=== PATIENT | female | born 1965 | race Caucasian/White ===

== ENCOUNTER → 2018-12-31 09:31 | Outpatient (CLI) | payer MEDICAID, SELFPAY ==
--- NOTE | 2018-12-31 09:38 | XR_ITS ---
PROCEDURE: XR WRIST LT MIN 3V CLINICAL INDICATION: left wrist pain/ CTS COMPARISON: No exams were available for comparison FINDINGS: No fracture, dislocation, lytic change, or blastic change evident. No significant degenerative change IMPRESSION: Within normal limits Dictated by: Dewayne Jones MD 12/31/2018 11:05 Signed by: <Electronically signed by Dewayne Jones MD in [place]> 12/31/2018 11:05
== END ==
PROVIDERS: PCP Family Medicine; Visit Provider Orthopaedic Surgery
DX: M25.532 Pain in left wrist (principal)
CPT/HCPCS: 73110

== ENCOUNTER → 2019-01-04 12:52 | Outpatient (CLI) | payer MEDICAID, SELFPAY ==
--- NOTE | 2019-01-04 13:03 | XR_ITS ---
PROCEDURE: XR CHEST 2V CLINICAL HISTORY: smoker, pre-op COMPARISON: ABDPELW CT ABD PELVIS W/ CONTRAST from 02/20/2014 FINDINGS: The cardiomediastinal silhouette and pulmonary vascularity are within normal limits. There is a 12 mm nodule in the right middle lobe which represents a partially calcified nodule as seen on a previous CT scan. The remaining lungs are clear. No acute bony abnormalities. IMPRESSION: Old granulomatous disease, no acute finding Dictated by: Dewayne Jones MD 01/04/2019 13:35 Signed by: <Electronically signed by Dewayne Jones MD in [place]> 01/04/2019 13:35
== END ==
PROVIDERS: PCP Orthopaedic Surgery; Referring Provider Orthopaedic Surgery; Visit Provider Orthopaedic Surgery
DX: Z01.818 Encounter for other preprocedural examination (principal); G56.02 Carpal tunnel syndrome, left upper limb
CPT/HCPCS: 71046

== ENCOUNTER → 2019-01-04 13:15 | Outpatient (CLI) | payer MEDICAID, SELFPAY ==
[2019-01-04 13:41] LABS: Basophils % 0.6 % (0.1-2.0); Eosinophils # 0.1 K/mm3 (0.0-0.4); Eosinophils % 1.4 % (0.1-12.0); Hemoglobin 13.9 g/dL (12.2-16.2); Lymphocytes # 2.6 K/mm3 (0.7-4.5); Lymphocytes % 37.4 % (10-50); Mean Corpuscular HGB Conc 33.2 g/dL (31.8-35.4); Mean Corpuscular Hemoglobin 30.1 pg (27.0-31.2); Mean Corpuscular Volume 90.6 fl (81-99); Mean Platelet Volume 8.4 fl (7.4-10.4); Monocytes # 0.4 K/mm3 (0.1-1.0); Monocytes % 5.6 % (1.7-9.3); Neutrophils # 3.9 K/mm3 (1.8-7.8); Neutrophils % 55.1 % (37.0-80.0); Platelet Count 246 K/mm3 (142-424); Red Blood Count 4.63 M/mm3 (4.20-5.40); Red Cell Distribution Width 13.7 % (11.5-17.5)
[2019-01-04 15:02] LABS: Hemoglobin A1C 6.9 % (0.0-7.0)
[2019-01-04 15:26] LABS: Alanine Aminotransferase 49 U/L (12-78); Albumin Level 4.1 gm/dL (3.4-5.0); Albumin/Globulin Ratio 1.1 (1.1-1.8); Alkaline Phosphatase 99 U/L (46-116); Anion Gap 9.4 mEq/L (5-15); Aspartate Amino Transferase 55 U/L (15-37); Bilirubin,Total 0.3 mg/dL (0.2-1.0); Blood Urea Nitrogen 8 mg/dL (7-18); Calcium 9.7 mg/dL (8.5-10.1); Carbon Dioxide 34 mmol/L (21.0-32.0); Chloride 91 mmol/L (98-107); Estimated Glomerular Filt Rate 105 ml/min (>60); GFR (African American) 128 ML/MIN (>60); Globulin 3.9 gm/dl (1.3-3.2); Glucose 118 mg/dL (74-106); Potassium 4.4 mmoL/L (3.5-5.1); Sodium 130 mmol/L (136-145)
== END ==
PROVIDERS: Visit Provider Orthopaedic Surgery
DX: Z01.818 Encounter for other preprocedural examination (principal); G56.02 Carpal tunnel syndrome, left upper limb
CPT/HCPCS: 36415; 80053; 83036; 85025

== ENCOUNTER → 2019-06-10 13:32 | Outpatient (CLI) | payer OTHER, SELFPAY ==
--- NOTE | 2019-06-10 13:35 | MR_ITS ---
PROCEDURE: MR LUMBAR SPINE WO CON CLINICAL INDICATION: LUMBAR DEGENERATIVE DISC DISEASE Low back pain with right leg numbness COMPARISON: No exams were available for comparison TECHNIQUE: Standard multiplanar multiecho sequences are performed without contrast. 3-D MIP and myelographic images are also rendered and reviewed FINDINGS: There is normal alignment. The spinal cord ends at the T12-L1 level. T11-T12, T12-L1, and L1-L2 and L2-L3 have an unremarkable appearance. There is minimal bulging disc with minimal disc desiccation at L3-L4 with minimal bulging disc with mild bilateral foraminal narrowing. L4-5 and L5-S1 have an unremarkable appearance. Incidental note made of a 1.3 cm left renal cyst. IMPRESSION: 1. Minimal bulging disc at L3-L4 with mild bilateral foraminal narrowing. 2. Otherwise negative MRI of the lumbar spine. No herniated disc or canal stenosis Dictated by: Dewayne Jones MD 06/12/2019 10:12 Electronically signed by Dewayne Jones MD in [place] 06/12/2019 10:12
== END ==
PROVIDERS: PCP Family Medicine; Visit Provider Family Medicine
DX: M51.36 Other intervertebral disc degeneration, lumbar region (principal); G89.29 Other chronic pain
CPT/HCPCS: 72148; 76376

== ENCOUNTER → 2019-10-08 09:32 | Outpatient (CLI) | payer MEDICAID, SELFPAY ==
--- NOTE | 2019-10-08 09:40 | XR_ITS ---
PROCEDURE: XR WRIST RT MIN 3V CLINICAL INDICATION: RIGHT wrist pain/ CTS COMPARISON: XR WRIST LT MIN 3V from 12/31/2018 FINDINGS: No fracture, dislocation, lytic change, or blastic change evident. No significant degenerative change IMPRESSION: Negative right wrist Dictated by: Dewayne Jones MD 10/08/2019 12:30 Electronically signed by Dewayne Jones MD in [place] 10/08/2019 12:30
== END ==
PROVIDERS: PCP Family Medicine; Visit Provider Orthopaedic Surgery
DX: M25.531 Pain in right wrist (principal)
CPT/HCPCS: 73110

== ENCOUNTER → 2019-10-10 07:48 | Outpatient (CLI) | payer MEDICAID, SELFPAY ==
[2019-10-10 08:08] LABS: Basophils % 0.5 % (0.1-2.0); Eosinophils # 0.2 K/mm3 (0.0-0.4); Eosinophils % 2.9 % (0.1-12.0); Hematocrit 40.5 % (37.0-47.0); Hemoglobin 14.4 g/dL (12.2-16.2); Lymphocytes # 2.9 K/mm3 (0.7-4.5); Mean Corpuscular HGB Conc 35.4 g/dL (31.8-35.4); Mean Corpuscular Hemoglobin 31.7 pg (27.0-31.2); Mean Corpuscular Volume 89.4 fl (81-99); Mean Platelet Volume 9.3 fl (7.4-10.4); Monocytes # 0.3 K/mm3 (0.1-1.0); Neutrophils # 4.7 K/mm3 (1.8-7.8); Neutrophils % 57.5 % (37.0-80.0); Platelet Count 202 K/mm3 (142-424); Red Blood Count 4.53 M/mm3 (4.20-5.40); Red Cell Distribution Width 13.2 % (11.5-17.5); White Blood Count 8.2 K/mm3 (4.8-10.8)
--- NOTE | 2019-10-10 08:18 | ECG_ITS ---
APPROVED REPORT Exam: Resting ECG HR:69 bpm ECG Measurements Heart Rate 69 AXES WI 160 P 58 QRSd 94 QRS 71 QT 380 T 56 QTc 407 <Conclusion> Normal sinus rhythm Possible Left atrial enlargement Poor R Wave Progression Abnormal ECG Electronically signed by : Westley Conti, 10/10/2019 17:11:08
--- NOTE | 2019-10-10 08:21 | XR_ITS ---
PROCEDURE: XR CHEST 2V CLINICAL HISTORY: HTN,TOBACCO USE COMPARISON: XR CHEST 2V from 01/04/2019 FINDINGS: Mild emphysematous changes are noted with hyperexpansion of the lung galeana and flattening of the hemidiaphragms. The lung galeana are clear of infiltrate. There is a faint nodular density right lower lung field apparently due to partially calcified granuloma as noted on previous CT scan of the chest. The cardiac silhouette and vascularity are normal and there is no pleural fluid. IMPRESSION: Mild COPD and evidence of old granulomatous disease, no acute chest pathology noted Dictated by: Dr. Cedric Bryant MD 10/10/2019 08:[address] Cedric Bryant MD in [place] 10/10/2019 08:58
[2019-10-10 09:06] LABS: Chloride 85 mmol/L (98-107); Potassium 4.3 mmoL/L (3.5-5.1); Sodium 123 mmol/L (136-145)
[2019-10-10 09:09] LABS: Alanine Aminotransferase 35 U/L (12-78); Albumin Level 4.2 g/dl (3.5-5.0); Albumin/Globulin Ratio 1.4 (1.1-1.8); Alkaline Phosphatase 110 U/L (38-126); Anion Gap 11.3 mEq/L (5-15); Aspartate Amino Transferase 55 U/L (14-36); Bilirubin,Total 0.6 mg/dl (0.2-1.3); Blood Urea Nitrogen 16 mg/dl (7-17); Carbon Dioxide 31 mmol/L (22.0-30.0); Estimated Glomerular Filt Rate 105 ml/min (>60); GFR (African American) 127 ML/MIN (>60); Globulin 2.9 g/dL (1.3-3.2); Total Protein,Serum 7.1 g/dl (6.3-8.2)
[2019-10-10 09:10] LABS: Glucose 118 mg/dl (74-100)
[2019-10-10 11:15] LABS: Hemoglobin A1C 6.7 % (4.0-6.0)
[2019-10-10 11:41] LABS: Coronavirus 19 IgG Antibody Negative (Negative); Coronavirus 19 IgM Antibody Negative (Negative)
== END ==
PROVIDERS: Visit Provider Orthopaedic Surgery
DX: Z01.818 Encounter for other preprocedural examination (principal); G56.01 Carpal tunnel syndrome, right upper limb
CPT/HCPCS: 36415; 71046; 80053; 83036; 85025; 86328; 93005

== ENCOUNTER 2019-10-13 06:04 | Day surgery (SDC) | payer MEDICAID, SELFPAY ==
--- NOTE | 2019-10-09 11:52 | SUR.PREOP ---
10/09/2019 @ 1769--PHONE CALL MADE TO PATIENT. PATIENT UNDERSTANDS THAT LAB WORK AND COVID TESTING NEEDS TO BE COMPLETED @ 0800 ON 10/10/2019. PATIENT UNDERSTANDS IF LAB WORK AND COVID-19 TESTS ARE NOT COMPLETED BY 12PM ON THAT DATE, THE SURGERY SCHEDULED WILL BE CANCELLED AND RESCHEDULED FOR ANOTHER TIME.
[2019-10-13 06:34] VITALS: BP 145/74; PULSE 65; RESP 20; TEMP 37; O2SAT 94; BMI 34.0
[2019-10-13 06:49] LABS: POC Glucose,Bedside 140 (70-110)
--- NOTE | 2019-10-13 07:03 | P.PN_ITS ---
[facility] Anesthesia Checklist - Patient Identification Patient Identification: Arm Band, Verbal (Name & ) - Structural Data Admitted From: Home Planned Operative Procedure/s: r ctr Consent for Planned Operative Procedure(s) Verified: Yes Verified Documents: History and Physical - NPO Status Verified Time NPO: 00:00 - Chart Verification Results Verified: CBC, BMP - Additional verifications Patient : No Anesthesia Reactions: No Hx Blood Transfusions: No Blood Transfusion Reaction: No Cephalosporin Allergy: No Previous Colonoscopy: No - Cardiovascular Assessment Heart Sounds: S1 & S2 Pulse Strength: Baseline Pulse Rhythm: Regular Peripheral Edema: No - Airway Assessment C-Spine Mobility Assessed: Yes TMJ Mobility Assessed: Yes Dentition: Good Dentition - Neurological Assessment Level of Consciousness: Awake, Alert, Appropriate Hx Seizures: No Numbness or tingling in extremities: No - Anesthesia Plan Anesthesia Risk discussed: Yes Anesthesia Plan: Verified ASA Class: III Anesthesia Type: General [facility] History I have reviewed the patient's past medical history: Yes Medical History: Reports:: Anxiety, Chronic Obstructive Pulmonary Disease (COPD), Depression, Diabetes Mellitus Type 2, Gastroesophageal Reflux Disease(GERD), Hepatitis, Hyperlipidemia, Hypertension Denies:: Cancer, Diabetes Mellitus Type 1, Internal Pacemaker, MRSA, Seizures *Have you ever received a pneumonia vaccine?: Yes *Have you received a flu vaccine this season?: No Other Medical History: Reports: Arthritis. Denies: Blood Transfusion Reaction Anesthesia experience/problems:: none Laterality Cases: Left: Carpal Tunnel Release Other Surgeries: Yes: Colonoscopy, . No: Pacemaker Amputation: No Fractures: No - *Social History Educational Level: Attended College Smoking Status: Current every day smoker Tobacco Type: cigarettes # Packs/Day (cigarettes): 2 Alcohol Intake: never Substance Use Type: other *Occupational Status:: unemployed Housing: house Household Members: spouse *Travel in the last 8 weeks: None - Psychiatric History Pschychiatric History:: Reports:: Anxiety, Depression Family Hx:: Diabetes, Heart Attack
[2019-10-13 08:54] VITALS: BP 116/69; PULSE 81; RESP 16; TEMP 36.2; O2SAT 92
[2019-10-13 09:09] VITALS: BP 123/94; PULSE 79; RESP 18; O2SAT 92
--- NOTE | 2019-10-13 09:14 | HMH.OPNOTE ---
Date of procedure: 10/13/19 Pre-op Diagnosis:: Carpal syndrome, right Post-op Diagnosis:: Same Procedure performed:: Open carpal tunnel release, right wrist Surgeon:: Matthias Martinez MD DRILLING [employer] SPECIALIST:: Gavino Mack Anesthesia: regional (Hollyvilla's block) Estimated blood loss (mL): 2 Clinical Note:: Patient is 54-year-old female with right carpal tunnel syndrome with long-standing symptoms. Previously EMG/NCV results confirmed carpal tunnel syndrome on both sides and she previously underwent successful carpal tunnel release on the left side. Patient is having significant and disabling symptoms on the right side and has failed to respond adequately to conservative management. Therefore the carpal tunnel release surgery is necessary to relieve symptoms, preserve the remaining fibers of the median nerve, improve function and decrease the pain, paresthesias and weakness and to prevent permanent nerve damage. Please refer to my office note for full details. Operative findings:: The intraoperative findings showed the median nerve to be very tightly compressed and hyperemic. The flexor retinaculum was noted to be thick and tight. There was mild synovitis in the carpal tunnel. There was no evidence of any space-occupying lesions within the carpal tunnel. Operative note:: On the day of the surgery the patient was met in the preoperative area. Patient was positively identified and the operative site was marked and initialed by me. A physical examination was performed and the chart was updated. I again discussed the procedure, risks and benefits and alternatives with the patient. The complications discussed include but are not limited to- bleeding, injury to nerves, blood vessels and tendons, infection, wound dehiscence, incomplete relief/continued pain, persistent numbness, palmar hypersensitivity, pillar pain, DVT/PE, complex regional pain syndrome(CRPS), worsening of nerve damage, failure of the condition to improve, incomplete return of function, bowstringing of tendons, weakness of electric motor repair supervisor strength, recurrence, failure of the surgery to accomplish the desired goals, decreased use of the hand, loss of use of the arm, loss of the hand or arm, loss of life. Likely need for further surgery in the future has been discussed. I've indicated to the patient where the proposed incision would be made and also discussed the possibility of extending the incision if needed to accomplish an effective release. We have discussed how the goal of surgery is to protect the fibers which have remained healthy and hopefully reverse the symptoms of the fibers which are compromised but still recoverable. We have explained that, fibers that are permanently damaged will not recover. We have also discussed the anesthetic options which include local, regional and general. Patient expressed a preference for a regional Hollyvilla's block. Patient asked appropriate questions and all have been answered by me. Patient wished to proceed with the surgery. Patient understood the risks, agreed to proceed with surgery, signed the consent form and no guarantees or assurances were given or implied. The patient was brought to the operating room and placed supine on the operating table. The right upper extremity was placed over a side table. All the bony prominences were well-padded. The patient had a Mirtha's block anesthesia and IV sedation administered by the machine welt butter. Please see nursing records for the total tourniquet time. The right upper extremity was prepped and draped in the usual sterile fashion. A preprocedure timeout was performed as per hospital policy. The skin incision was marked using the Mcknight's landmarks, just ulnar to the thenar crease. Mcknight's landmarks were utilized and a skin incision was made parallel and just ulnar to the thenar crease with a 15 blade. Blunt tissue dissection was carried through the subcutaneous tissue down to the palmar fascia. The palmar fascia was incised with the knife to
[2019-10-13 09:24] VITALS: BP 140/78; PULSE 75; RESP 18; O2SAT 94
[2019-10-13 09:43] VITALS: BP 118/68; PULSE 84; RESP 18; O2SAT 94
== END 2019-10-13 09:43 | disposition home or self-care (01) ==
LOC: OR 06:05
PROVIDERS: PCP Family Medicine; Visit Provider Orthopaedic Surgery
PROC: (CPT 64721; principal; 2019-10-13 07:30)
DX: G56.01 Carpal tunnel syndrome, right upper limb (principal)
CPT/HCPCS: 64721; 82962; 96374

== ENCOUNTER → 2020-09-15 14:06 | Outpatient (CLI) | payer OTHER, SELFPAY ==
--- NOTE | 2020-09-15 14:06 | CT_ITS ---
PROCEDURE: CT LUNG SCREENING CLINICAL INDICATION: lung cancer screening COMPARISON: No exams were available for comparison TECHNIQUE: The exam was performed on a GE Light Speed [address] scanner using 2.90 mGy CTDI. A low dose helical CT CHEST was performed on a multi-detector scanner. All CT scans at the facility use one or more dose reduction, viz: automated exposure control, ma/kV adjustment per patient size (including targeted exams where dose is matched to indication, i.e. head), or iterative reconstruction technique. The LDCT was performed in a facility that meets the criteria for the screening program. Data regarding this exam was submitted to ACR which is an approved registry. The order for this exam indicates that it came as a result of a lung cancer screening counseling shard decision-making visit that included all the elements required of such a visit including smoking cessation. The radiologist interpreting this exam meets the CMS criteria for the LDCT lung cancer screening program. The exam is reported using the Lung-RADS classification scale and reported to the ACR registry. NOTE: This study was performed for the specific purposes of lung cancer screening and is not an alternative to diagnostic chest CT. RADIATION DOSE: CTDI vol(CT dose Index-volume) = 2.90mG DLP (Dose Length Product) = mGcm FINDINGS: There is a left lower lobe nodule measuring 5 millimeters abutting the fissure. F ocal nodular appearing density noted in the left upper lobe measuring 8 millimeters, demonstrates adjacent ground-glass densities. Second nodule is noted in the left upper lobe measuring 7 millimeters. Calcified granuloma in the right middle lobe. Centrilobular emphysematous changes are noted bilaterally. No lobar consolidation, pleural effusions or pneumothorax. The central tracheobronchial tree is patent. The heart size is normal. No pericardial effusions. Atherosclerotic vascular calcification of the thoracic aorta and the coronary arteries are noted. No significant mediastinal adenopathy. Few calcified lymph nodes are noted in the mediastinum. No significant hilar or mediastinal adenopathy. Visualized osseous structures are unremarkable. The visualized upper abdominal solid organs are unremarkable within the limitations of unenhanced study. The visualized thyroid gland is unremarkable. IMPRESSION: Lung-RADS Category 3 Probably Benign Follow-up: Close follow-up with CT thorax in 3 months is recommended. PET-CT should be considered. Dictated by: Destinee Martinez 09/16/2020 09:00 Destinee Martinez in [place] 09/16/2020 09:00
== END ==
PROVIDERS: PCP Family Medicine; Visit Provider Internal Medicine Pulmonary Disease
DX: Z87.891 Personal history of nicotine dependence (principal); Z12.2 Encounter for screening for malignant neoplasm of respiratory organs; R06.00 Dyspnea, unspecified
CPT/HCPCS: 71271; 94060; 94618; 94726; 94729

== ENCOUNTER → 2020-12-15 14:21 | Outpatient (CLI) | payer OTHER, SELFPAY ==
--- NOTE | 2020-12-15 14:22 | CT_ITS ---
PROCEDURE: CT CHEST WO CON CLINICAL INDICATION: 3-month follow-up CT Follow-up pulmonary nodules COMPARISON: CT CT LUNG SCREENING from 09/15/2020 TECHNIQUE: Axial images obtained with sagittal and coronal reformats. All CT scans at the facility use one or more dose reduction, viz: automated exposure control, ma/kV adjustment per patient size (including targeted exams where dose is matched to indication, i.e. head), or iterative reconstruction technique. FINDINGS: HEART AND MEDIASTINAL STRUCTURES: Coronary artery calcification. No mediastinal or hilar mass or adenopathy. LUNGS AND PLEURAL SPACES: COPD with centrilobular emphysema and evidence of old granulomatous disease. 4 mm subpleural nodular opacity right upper lobe medially slightly more prominent compared to the previous exam. Jade fissural nodules along the left major fissure unchanged. No change in the 8 mm nodule within the left upper lobe along the major fissure in the 7 mm nodule in the left upper lobe in the subpleural region of the major fissure. No new the nodules apparent. No effusions or infiltrates. BONY STRUCTURES: No acute bony abnormalities apparent. UPPER ABDOMEN: Unremarkable. ADDITIONAL FINDINGS: No other significant abnormalities. IMPRESSION: Overall no change in the left upper lobe nodules as described above. Slightly more prominent 4 mm nodule in the right upper lobe. The prominence could be related to the slice orientation. Continued six-month follow-up suggested. Dictated by: Dewayne Jones MD 12/16/2020 09:16 Dewayne Jones MD in [place] 12/16/2020 09:16
== END ==
PROVIDERS: PCP Emergency Medicine; Visit Provider Internal Medicine Pulmonary Disease
DX: R91.8 Other nonspecific abnormal finding of lung field (principal)
CPT/HCPCS: 71250

== ENCOUNTER → 2021-04-27 16:16 | Outpatient (CLI) | payer OTHER, SELFPAY ==
[2021-04-27 17:36] LABS: Basophils # 0.1 K/mm3 (0-0.2); Basophils % 1.2 % (0.1-2.0); Eosinophils # 0.2 K/mm3 (0.0-0.4); Eosinophils % 1.8 % (0.1-12.0); Hematocrit 44.2 % (37.0-47.0); Hemoglobin 14.3 g/dL (12.2-16.2); Lymphocytes # 4.2 K/mm3 (0.7-4.5); Lymphocytes % 34.7 % (10-50); Mean Corpuscular HGB Conc 32.4 g/dL (31.8-35.4); Mean Corpuscular Hemoglobin 30.3 pg (27.0-31.2); Mean Corpuscular Volume 93.7 fl (81-99); Mean Platelet Volume 8.7 fl (7.4-10.4); Monocytes # 0.6 K/mm3 (0.1-1.0); Monocytes % 5.2 % (1.7-9.3); Neutrophils # 6.9 K/mm3 (1.8-7.8); Neutrophils % 57.1 % (37.0-80.0); Platelet Count 426 K/mm3 (142-424); Red Blood Count 4.72 M/mm3 (4.20-5.40); Red Cell Distribution Width 14.2 % (11.5-17.5)
[2021-05-04 15:25] LABS: D001-IgE D pteronyssinus <0.10 kU/L (Class 0); D002-IgE D farinae <0.10 kU/L (Class 0); E001-IgE Cat Dander <0.10 kU/L (Class 0); E005-IgE Dog Dander <0.10 kU/L (Class 0); E072-IgE Mouse Urine <0.10 kU/L (Class 0); G002-IgE Bermuda Grass <0.10 kU/L (Class 0); G006-IgE Timothy Grass <0.10 kU/L (Class 0); I006-IgE Cockroach, German <0.10 kU/L (Class 0); Immunoglobulin E, Total 120 IU/mL (6-495); M001-IgE Penicillium chrysogen <0.10 kU/L (Class 0); M002-IgE Cladosporium herbarum <0.10 kU/L (Class 0); M003-IgE Aspergillus fumigatus <0.10 kU/L (Class 0); M006-IgE Alternaria alternata <0.10 kU/L (Class 0); T001-IgE Maple/Box Elder <0.10 kU/L (Class 0); T003-IgE Common Silver Birch <0.10 kU/L (Class 0); T006-IgE Cedar, Mountain <0.10 kU/L (Class 0); T007-IgE Oak, White <0.10 kU/L (Class 0); T008-IgE Elm, American <0.10 kU/L (Class 0); T010-IgE Walnut <0.10 kU/L (Class 0); T011-IgE Maple Leaf Sycamore <0.10 kU/L (Class 0); T014-IgE Cottonwood <0.10 kU/L (Class 0); T015-IgE Ash, White <0.10 kU/L (Class 0); T022-IgE Pecan, Hickory <0.10 kU/L (Class 0); T070-IgE White Mulberry <0.10 kU/L (Class 0); W001-IgE Ragweed, Short <0.10 kU/L (Class 0); W011-IgE Thistle, Russian <0.10 kU/L (Class 0); W014-IgE Pigweed, Common <0.10 kU/L (Class 0); W018-IgE Sheep Sorrel <0.10 kU/L (Class 0)
== END ==
PROVIDERS: Visit Provider Internal Medicine Pulmonary Disease
DX: J45.909 Unspecified asthma, uncomplicated (principal)
CPT/HCPCS: 82785; 85025; 86003

== ENCOUNTER → 2021-09-27 14:52 | Outpatient (CLI) | payer OTHER, SELFPAY ==
--- NOTE | 2021-09-27 14:52 | CT_ITS ---
FINAL REPORT TECHNIQUE: Thin section axial images were obtained from the lung apices through the upper abdomen without contrast. This study was performed with techniques to keep radiation doses as low as reasonably achievable (ALARA). Individualized dose reduction techniques using automated exposure control or adjustment of mA and/or kV according to the patient's size were employed. CLINICAL HISTORY: lung nodule followup COMPARISON: December 15, 2020 and September 15, 2020 FINDINGS: There is no mediastinal, left hilar, or axillary lymphadenopathy. There are several small right hilar lymph nodes which are unchanged. There is no pleural or pericardial effusion. There are changes of emphysema. There is a 6 mm nodule in the left upper lobe on image 104 which is unchanged. A second left upper lobe nodule along the major fissure on image 96 is also stable. The previously mentioned right upper lobe nodule is not well visualized on today's exam. However, there has been interval development of bilateral, right greater than left, patchy ground-glass opacities. This finding is concerning for viral pneumonia to include COVID. Limited, unenhanced evaluation of the upper abdomen is without acute abnormality. There is no acute osseous abnormality. IMPRESSION: 1. Stable left lung nodules. 2. Interval development of patchy bilateral, right greater than left, ground-glass opacities concerning for viral pneumonia, consider COVID. Reviewed, Interpreted and Dictated by Rosa Fisher MD Transcribed by Jeanne Virk Authenticated by Rosa Fisher MD on 09/27/2021 04:35:16 PM [facility]
== END ==
PROVIDERS: PCP Emergency Medicine; Visit Provider Internal Medicine Pulmonary Disease
DX: R91.8 Other nonspecific abnormal finding of lung field (principal)
CPT/HCPCS: 71250

== ENCOUNTER → 2021-09-27 15:47 | Outpatient (CLI) | payer OTHER, SELFPAY ==
[2021-09-27 16:01] LABS: Coronavirus 19, PCR Not Detected (NotDetected); Influenza A, PCR Not Detected (NotDetected); Influenza B, PCR Not Detected (NotDetected)
== END ==
PROVIDERS: Visit Provider Internal Medicine Pulmonary Disease
DX: Z01.812 Encounter for preprocedural laboratory examination (principal); Z20.822 Contact with and (suspected) exposure to COVID-19; R06.02 Shortness of breath; R91.1 Solitary pulmonary nodule
CPT/HCPCS: C9803; U0003; U0005

== ENCOUNTER → 2021-10-12 16:38 | Outpatient (CLI) | payer OTHER, SELFPAY ==
--- NOTE | 2021-10-12 16:45 | XR_ITS ---
PROCEDURE INFORMATION: Exam: XR Chest Exam date and time: 10/12/2021 4:47 PM Age: 56 years old Clinical indication: Shortness of breath; Additional info: SOB TECHNIQUE: Imaging protocol: XR of the chest. Views: 2 views. COMPARISON: CT CHEST WO CON 09/27/2021 2:56 PM FINDINGS: Lungs: Chronic partially calcified right middle lobe pulmonary granuloma again noted, approximate 1.3 cm. No pulmonary consolidation. The patchy ground-glass disease including peripheral rounded opacities seen in the right lung on the recent chest CT of 09/27/2021 are not well visualized on plain chest x-ray. Small noncalcified left pulmonary nodules seen on the prior CT are also not well demonstrated on this chest x-ray. Borderline pulmonary hyperinflation. Pleural spaces: Unremarkable. No significant pleural effusion. No pneumothorax. Heart/Mediastinum: The cardiac silhouette is normal. Bones/joints: Spinal degenerative changes. Mild multilevel disc narrowing and spondylosis. Cervical facet arthropathy. IMPRESSION: 1. Chronic calcified right pulmonary granuloma. 2. Patchy pulmonary ground-glass disease seen on the recent CT of 09/27/2021 is not well visualized on plain chest x-ray. There is no focal consolidation. 3. Additional nonemergency and chronic findings as above.
== END ==
PROVIDERS: PCP Emergency Medicine; Visit Provider Internal Medicine Pulmonary Disease
DX: R06.02 Shortness of breath (principal); B95.2 Enterococcus as the cause of diseases classified elsewhere; B96.5 Pseudomonas (aeruginosa) (mallei) (pseudomallei) as the cause of diseases classified elsewhere
CPT/HCPCS: 71046; 87070; 87186; 87205

== ENCOUNTER → 2022-05-11 14:58 | Outpatient (CLI) | payer OTHER, SELFPAY ==
--- NOTE | 2022-05-11 15:06 | CT_ITS ---
FINAL REPORT TECHNIQUE: Axial images were obtained from the lung apex to the mid abdomen by computed tomography. Coronal reformatted images were obtained. This study was performed with techniques to keep radiation doses as low as reasonably achievable, (ALARA). Individualized dose reduction techniques using automated exposure control or adjustment of mA and/or kV according to the patient''s size were employed. CLINICAL HISTORY: 9 month F/U COMPARISON: 09/27/2021 in 04/14/2022 FINDINGS: There are scattered borderline enlarged lymph nodes, probably reactive. Heart size is normal. There is no pericardial or pleural effusion. Limited images of the upper abdomen are unremarkable. Interval increase in size in the left upper lobe nodule measuring 8 mm, previously measured 6 mm. There is a 2nd left upper lobe nodule measuring 9 mm, was 7 mm. Emphysema is noted. There has been resolution of the ground-glass opacities previously noted in the upper lobes. IMPRESSION: Mild interval enlargement left upper lobe nodules. Continued close follow-up recommended in six months. Resolution bilateral upper lobe opacities Reviewed, Interpreted and Dictated by Ervin Christine MD Transcribed by Erin Galeano Authenticated and . [facility]
== END ==
PROVIDERS: PCP Emergency Medicine; Visit Provider Internal Medicine Pulmonary Disease
DX: R91.8 Other nonspecific abnormal finding of lung field (principal)
CPT/HCPCS: 71250

== ENCOUNTER → 2022-11-21 14:27 | Outpatient (CLI) | payer OTHER, SELFPAY ==
--- NOTE | 2022-11-21 14:29 | CT_ITS ---
FINAL REPORT TECHNIQUE: Thin section axial images were obtained from the lung apices through the upper abdomen without contrast. This study was performed with techniques to keep radiation doses as low as reasonably achievable (ALARA). Individualized dose reduction techniques using automated exposure control or adjustment of mA and/or kV according to the patient's size were employed. CLINICAL HISTORY: NODULES COMPARISON: 05/11/2022 FINDINGS: There is no mediastinal, hilar, or axillary lymphadenopathy. No pleural or pericardial effusion. There is evidence of prior granulomatous disease. The posterior left upper lobe pulmonary nodules are unchanged. No new nodules are identified. There is no new consolidation. Limited, unenhanced evaluation of the upper abdomen is without acute abnormality. There is no acute osseous abnormality. IMPRESSION: Stable noncalcified pulmonary nodules in the left upper lobe. Recommend continued follow-up to prove stability for 2 years. Reviewed, Interpreted and Dictated by Rosa Fisher MD Transcribed by Agueda Jeffery Authenticated and [facility]
== END ==
PROVIDERS: PCP Emergency Medicine; Visit Provider Internal Medicine Pulmonary Disease
DX: R91.8 Other nonspecific abnormal finding of lung field (principal)
CPT/HCPCS: 71250

== ENCOUNTER → 2023-04-04 12:55 | Outpatient (CLI) | payer OTHER, SELFPAY ==
--- NOTE | 2023-04-09 08:33 | PC.NURSE ---
Patient did a overnight pulse ox but there wasn't enough data. Will have patient redo.
--- NOTE | 2023-05-14 13:31 | PC.NURSE ---
I spoke with the patient just before [place] about repeating the overnight pulse ox and she asked for me to call back after the first of the year. I have called and left a message to call me back to schedule a day to pick one up.
== END ==
PROVIDERS: PCP Emergency Medicine; Visit Provider Internal Medicine Pulmonary Disease
DX: G47.30 Sleep apnea, unspecified (principal); R06.09 Other forms of dyspnea
CPT/HCPCS: 94060; 94618; 94726; 94729

== ENCOUNTER 2023-07-04 12:06 | Outpatient (CLI) | payer OTHER, SELFPAY | END 2023-07-04 23:59 | LOC: RT 12:07 | PROVIDERS: PCP Emergency Medicine; Visit Provider Internal Medicine Pulmonary Disease | DX: G47.30 Sleep apnea, unspecified (principal) ==

== ENCOUNTER 2023-12-03 14:49 | Outpatient (CLI) | payer OTHER, SELFPAY ==
--- NOTE | 2023-12-03 14:49 | CT_ITS ---
FINAL REPORT TECHNIQUE: Axial images were obtained from the lung apex to the mid abdomen by computed tomography. This study was performed with techniques to keep radiation doses as low as reasonably achievable (ALARA). Individualized dose reduction techniques using automated exposure control or adjustment of mA and/or kV according to the patient's size were employed. CLINICAL HISTORY: lung cancer screening current smoker 1ppd x 43 years COMPARISON: 11/21/2022 and 05/11/2022 FINDINGS: CHEST CT LOW DOSE CTDI vol (mGy): 2.90 DLP (mGy-cm): 96.38 There is no axillary adenopathy. There are few small scattered mediastinal lymph nodes. There is dense calcification in the left descending coronary artery. The heart is normal in size. There is no pericardial or pleural effusion. There is a dominant spiculated mass in the posterior medial left upper lobe measuring 2.4 x 1.8 cm, new since prior. There is a new satellite lesion measuring 7 mm in diameter well seen on image 13 of series 3. There is a stable nodule in the posterior left upper lobe measuring 7 mm well seen on image 33 of series 3. Limited images of the upper abdomen are unremarkable. IMPRESSION: Dominant 2.4 cm mass noncalcified spiculated mass in the left upper lobe highly concerning for neoplasm. Lung RADS category 4B. Recommend PET-CT and/or needle sampling. Reviewed, Interpreted and Dictated by Chepe Canseco MD Transcribed by Agueda Jeffery Authenticated and [facility]
== END 2023-12-03 23:59 | disposition home or self-care (01) ==
LOC: RAD 14:49
PROVIDERS: PCP Internal Medicine Pulmonary Disease; Visit Provider Internal Medicine Pulmonary Disease
DX: F17.210 Nicotine dependence, cigarettes, uncomplicated (principal)
CPT/HCPCS: 71271

== ENCOUNTER 2024-01-15 07:31 | Outpatient (CLI) | payer OTHER, SELFPAY ==
[2024-01-15 08:04] VITALS: BMI 29.8
[2024-01-15 08:12] VITALS: BP 161/82; PULSE 65; RESP 18; TEMP 36.6; O2SAT 94
[2024-01-15 08:19] LABS: POC Glucose,Bedside 121 (70-110)
[2024-01-15 08:20] LABS: Basophils # 0.1 K/mm3 (0-0.2); Basophils % 1.6 % (0.1-2.0); Eosinophils # 0.3 K/mm3 (0.0-0.4); Hematocrit 47.7 % (37.0-47.0); Lymphocytes # 2.6 K/mm3 (0.7-4.5); Lymphocytes % 42.7 % (10-50); Mean Corpuscular HGB Conc 31.5 g/dL (31.8-35.4); Mean Corpuscular Hemoglobin 28.6 pg (27.0-31.2); Mean Corpuscular Volume 90.5 fl (81-99); Mean Platelet Volume 10.1 fl (7.4-10.4); Monocytes # 0.4 K/mm3 (0.1-1.0); Monocytes % 6.6 % (1.7-9.3); Neutrophils # 2.8 K/mm3 (1.8-7.8); Platelet Count 169 K/mm3 (142-424); Red Blood Count 5.26 M/mm3 (4.20-5.40); Red Cell Distribution Width 15.7 % (11.5-17.5); White Blood Count 6.1 K/mm3 (4.8-10.8)
[2024-01-15 08:28] LABS: Blood Urea Nitrogen 11 mg/dl (7-17); Creatinine Clearance Estimated 122 mL/min (50-200); Estimated Glomerular Filt Rate 103 ml/min (>60); GFR (African American) 125 ML/MIN (>60); INR 0.96 (0.9-1.1); Prothrombin Time 10.8 seconds (10.1-12.5)
[2024-01-15 09:00] VITALS: BP 139/56; PULSE 72; RESP 18; O2SAT 86
--- NOTE | 2024-01-15 09:15 | HMH.ITSTN ---
Per Dr Christine and Raghu FARAH, we are cancelling the CT guided ILDA biopsy today. Patient prone on ct table for CT procedure and oxygen sat at 85% on 6 liters of O2. Doubled oxygen what she is on at home.
[2024-01-15 10:00] VITALS: BP 146/80; PULSE 63; RESP 18; O2SAT 94
--- NOTE | 2024-01-15 10:12 | PC.NURSE ---
patient taken to CT scan for procedure. baseline O2 saturation was 94% on 3L, which is what the patient uses at home. Once patient was placed on abdomen for procedure, O2 saturation dropped to 86% on 6L SOFI Thayer notified and procedure was aborted and patient was taken back to post op. O2 saturation back to 94% on 3L. Dr. Leny MD notified of situation and follow up appointment was made.
== END 2024-01-15 23:59 | disposition home or self-care (01) ==
PROVIDERS: PCP Emergency Medicine; Visit Provider Internal Medicine Pulmonary Disease
DX: R91.1 Solitary pulmonary nodule (principal)
CPT/HCPCS: 82565; 82962; 84520; 85025; 85610